=== PATIENT | female | born 1960 | race Caucasian/White ===

== ENCOUNTER 2022-08-20 10:53 | Outpatient (CLI) | payer BC, OTHER | END 2022-08-20 10:54 | disposition home or self-care (01) | LOC: RAD 10:53 | PROVIDERS: ATTEND Otolaryngology Plastic Surgery within the Head & Neck | DX: R13.13 Dysphagia, pharyngeal phase (principal); R63.30 Feeding difficulties, unspecified; D36.9 Benign neoplasm, unspecified site | CPT/HCPCS: 74230 ==

== ENCOUNTER 2022-12-20 12:49 | Outpatient (CLI) | payer BC, SELFPAY | END 2022-12-20 12:50 | disposition home or self-care (01) | LOC: MRI 12:49 | PROVIDERS: ATTEND Student in an Organized Health Care Education/Training Program | DX: G51.0 Bell's palsy (principal) | CPT/HCPCS: 70553 ==